=== PATIENT | female | born 1990 | race Caucasian/White ===

== ENCOUNTER 2022-05-09 09:36 | Outpatient (CLI) | payer BC, SELFPAY | END 2022-05-09 09:37 | disposition home or self-care (01) | LOC: ANHLAB 09:43 | PROVIDERS: Visit Provider Advanced Practice Midwife | DX: O20.0 Threatened abortion (principal); Z3A.00 Weeks of gestation of pregnancy not specified | CPT/HCPCS: 36415; 84702; 86850; 86900; 86901 ==

== ENCOUNTER 2022-05-11 12:27 | Outpatient (CLI) | payer BC, SELFPAY | END 2022-05-11 12:28 | disposition home or self-care (01) | LOC: ANHOBOP 12:34 | PROVIDERS: Visit Provider Advanced Practice Midwife | DX: O20.0 Threatened abortion (principal); Z3A.00 Weeks of gestation of pregnancy not specified | CPT/HCPCS: 36415; 84702 ==

== ENCOUNTER 2022-12-01 12:07 | Observation (INO) | payer BC, SELFPAY ==
[2022-12-01 12:21] VITALS: BP 125/74; PULSE 102
[2022-12-01 12:31] VITALS: BP 83/55; PULSE 112
[2022-12-01 12:56] LABS: Appearance Urine Clear (Clear); Bilirubin Urine Negative (Negative); Blood Urine Negative (Negative); Color Urine Yellow (Yellow); Glucose Urine UA Negative (Negative); Ketones Urine Negative (Negative); Leukocyte Esterase Ur 1+ LEU/UL (NEGATIVE); Nitrate Urine Negative (Negative); Protein Urine Negative (Negative); Specific Grav Ur 1.015 (1.001-1.035); Urobilinogen Urine 0.2 mg/dL (<2.0)
[2022-12-01 12:59] LABS: Bacteria Urine 1+ /hpf; Squamous Epithelial Cell Urine Many /hpf (Few)
[2022-12-01 13:00] VITALS: BP 115/71; PULSE 93
[2022-12-01 13:02] LABS: Add Urine Microscopic? YES
--- NOTE | 2022-12-01 13:46 | OBADM ---
This patient, Nohemi Hancock, admitted to the OB room OB Post 117 for observation. Pt states she has been feeling tightness on abdomen and have back pain and suprapubic pain. Patient/family oriented to hospital policies and general routines including ID bracelet, bed and alarms, visiting hours, pain management, procedures, bathroom and other care routines, personal items, smoking policy, room service/diet, and visiting hours. Patient/Family are encouraged to report perceived risks to care and to ask questions if they do not understand what they are told or what they should do.
--- NOTE | 2022-12-25 21:59 | PM.OBTRLD ---
OB - Triage/Final Diagnosis Visit Information Comments/Additional reasons for admission: I have assessed the risk for this patient, Nohemi Hancock, and determined that she would benefit from observation care. Evaluation Laboratory results: Laboratory Tests 12/01/22 12:38 Urine Color Yellow Urine Appearance Clear Urine pH 7.0 Ur Specific [place] 1.015 Urine Protein Negative Urine Glucose (UA) Negative Urine Ketones Negative Ur Blood (Man) Negative Urine Nitrate Negative Urine Bilirubin Negative Urine Urobilinogen 0.2 Ur Leukocyte Esterase 1+ H Urine RBC 3-5 H Urine WBC 4-6 H Ur Squamous Epith Cells Many H Urine Bacteria 1+ H Final Diagnosis (1) False labor: Code(s): O47.9 - False labor, unspecified Status: Acute
== END 2022-12-01 13:30 | disposition home or self-care (01) ==
PROVIDERS: Admitting Provider Obstetrics & Gynecology; Visit Provider Obstetrics & Gynecology
DX: O47.03 False labor before 37 completed weeks of gestation, third trimester (principal); O26.893 Other specified pregnancy related conditions, third trimester; R10.9 Unspecified abdominal pain; Z3A.35 35 weeks gestation of pregnancy
CPT/HCPCS: 81001; 87086; G0378; G0379

== ENCOUNTER 2022-12-25 14:05 | Outpatient (CLI) | payer BC, SELFPAY ==
[2022-12-25 15:05] LABS: Hematocrit 36.6 % (37.0-47.0); Hemoglobin 11.8 g/dL (12.0-15.0); Mean Corpuscular HGB Conc 32.2 g/dl (32-36); Mean Corpuscular Volume 86.7 fl (80-100); Mean Platelet Volume 11.1 fl (7.4-10.4); Platelet Count Result 234 k/mm3 (150-375); Red Blood Count 4.22 M/mm3 (4.2-5.4); Red Cell Distribution Width 15.9 % (11.5-14.5); White Blood Count 10.3 K/mm3 (4.5-10.0)
[2022-12-26 11:29] LABS: Rapid Plasma Reagin Non-Reactive (NonReactive)
== END 2022-12-25 14:06 | disposition home or self-care (01) ==
PROVIDERS: Visit Provider Obstetrics & Gynecology
DX: Z34.93 Encounter for supervision of normal pregnancy, unspecified, third trimester (principal); Z3A.00 Weeks of gestation of pregnancy not specified
CPT/HCPCS: 36415; 85027; 86592; 86850; 86900; 86901

== ENCOUNTER 2022-12-26 05:30 | Inpatient (IN) | payer BC, SELFPAY ==
[2022-12-26] VITALS (47 sets, daily range): BP systolic 67–113; BP diastolic 46–83; PULSE 56–92; RESP 13–16; TEMP 36.2–36.5; O2SAT 96–100; BMI 40.5
[2022-12-26] MEDS: LACTATED RINGERS 1,000 ML 125 ML IV CONT ×2 (05:57→07:06)
--- NOTE | 2022-12-26 06:58 | WPDANESEPPF ---
Anes - Initial Pre Proc Eval Procedure: Operation Date: 12/26/22 07:30 Proposed Procedures p Repeat Section - Kaiden Holman MD Date/Time: 12/26/22 06:58 Surgeon: Kaiden Holman MD Pre Op Diagnosis: r c/s Patient Data Age: 32 Gender: F Height: 1.57 m Weight: 100.5 kg Last Vital Signs Pulse 88 12/26/22 06:15 BP 113/76 12/26/22 06:15 O2 Del Method Room Air 12/26/22 06:37 Allergies Allergy/AdvReac Type Severity Reaction Status Date / Time No Known Allergies Allergy Verified 12/06/22 12:45 Home Medications Medication Instructions Recorded Confirmed Type aspirin 81 mg chewable tablet 81 mg PO DAILY 12/01/22 12/26/22 History levothyroxine 100 mcg tablet 100 mcg DAILY 12/06/22 12/26/22 History prenat.vits,kenney,[id number] 1 tablet PO DAILY 12/06/22 12/26/22 History Patient hx anesthesia problems: none Family hx anesthesia problems: none Results Review: All pre-operative results and documents have been reviewed as part of the pre-operative evaluation. [facility] Family History Family History (Updated 12/06/22 @ 12:51 by Renetta Mckeon RN) Grandparent Heart disease COPD (chronic obstructive pulmonary disease) Mother Heart disease COPD (chronic obstructive pulmonary disease) Grandparent COPD (chronic obstructive pulmonary disease) Breast cancer Social History Social History Smoking status: Never smoker Second hand tobacco smoke exposure: No Substance use: never Lack of Transportation: No Lack of Food: Never True Current Housing: I Have Housing Concerned About Future Housing: No Difficulty Paying Gas/Electric Bills: No Difficulty Paying for Meds: No Currently Unemployed: No Education: Bachelor's Degree Difficulty w/ Childcare or Family Care: No Spiritual care concerns: No Anes - Eval Final PreProcedure Day of Procedure 12/26/22 06:58 Patient weight: morbidly obese Heart: regular rate and rhythm Lungs: clear to auscultation and normal air movement Airway: Mallampati scale class II Neurological: alert and oriented Last oral intake: >/= 8 hours ASA classification: III Emergent: no Anesthetic plan: proceed Anesthesia type and monitoring: regional spinal Results Review: All pre-operative results and documents have been reviewed as part of the pre-operative evaluation. Informed Consent: The patient's anesthetic plan and its attendant risks and benefits were discussed with the patient/family/POA. Questions were solicited and answers provided to the satisfaction of the patient/family/POA.
[2022-12-26] MEDS: ceFAZolin 2 GM/D5W 50 ML 2 GM/50 ML BAG IVPB (07:09)
--- NOTE | 2022-12-26 07:28 | PM.IMHP ---
H&P: HPI History of Present Illness Date/Time: 12/26/22 07:28 Chief Complaint: Term , previous Narrative: a multiparous female at term with a history of delivery presents for repeat delivery. We have agreed to perform repeat . She understands risks. She understands that injuries may occur that result in hospitalization, more surgery, and severe illness. She understands risk of hemorrhage and infection. She denies any chest pain or shortness of breath. She denies any nausea, vomiting, fever, chills. Review of Systems Review of Systems: All systems reviewed & are unremarkable except as noted in HPI and below Constitutional: Constitutional: Denies chills, Denies fatigue, Denies fever(s) and Denies weakness Eyes: Eyes: Denies blurry vision, Denies change in vision, Denies loss of peripheral vision, Denies loss of vision, Denies other visual disturbances and Denies eye pain ENT: Denies vertigo, Denies dizziness, Denies hearing loss, Denies mouth pain, Denies nasal obstruction, Denies neck mass and Denies neck pain Cardiovascular: Cardiovascular: Denies chest pain, Denies diaphoresis, Denies syncope, Denies leg edema and Denies dyspnea Respiratory: Respiratory: Denies chest congestion, Denies cough, Denies hemoptysis, Denies dyspnea and Denies wheezing Gastrointestinal: Gastrointestinal: Denies abdominal pain, Denies constipation, Denies diarrhea, Denies nausea and Denies vomiting Genitourinary: Genitourinary: Denies hematuria, Denies change in libido, Denies nocturia, Denies genital lesions, Denies flank pain and Denies urinary urgency Musculoskeletal: Musculoskeletal: Denies abnormal gait, Denies back pain, Denies myalgias, Denies arthralgias, Denies joint swelling, Denies muscle weakness and Denies neck pain Integumentary/Breasts: Skin/Breast: Denies swelling, Denies breast pain, Denies breast mass, Denies dry skin, Denies nipple discharge, Denies unusual bruising and Denies jaundice Neurologic: Denies Neuro-related abnormal movements, Denies Abnormal speech present, Denies abnormal gait, Denies behavioral changes, Denies confusion, Denies vertigo, Denies dizziness, Denies syncope, Denies loss of vision, Denies memory loss, Denies convulsions and Denies weakness Psychiatric: Psychiatric: Denies abnormal sleep pattern, Denies behavioral changes, Denies change in libido, Denies confusion, Denies depression, Denies anhedonia and Denies memory loss Endocrine: Endocrine: Reports no additional endocrine complaints, Denies change in libido and Denies fatigue Hematologic/Lymphatic: Hematologic/Lymphatic: Reports no additional hematologic/lymphatic complaints Allergic/Immunologic: Allergic/Immunologic: Reports no additional allergic/immunologic complaints and Denies wheezing [facility] Family History Family History (Updated 12/06/22 @ 12:51 by Renetta Mckeon RN) Grandparent Heart disease COPD (chronic obstructive pulmonary disease) Mother Heart disease COPD (chronic obstructive pulmonary disease) Grandparent COPD (chronic obstructive pulmonary disease) Breast cancer Social History Social History Smoking status: Never smoker Second hand tobacco smoke exposure: No Substance use: never Lack of Transportation: No Lack of Food: Never True Current Housing: I Have Housing Concerned About Future Housing: No Difficulty Paying Gas/Electric Bills: No Difficulty Paying for Meds: No Currently Unemployed: No Education: Bachelor's Degree Difficulty w/ Childcare or Family Care: No Spiritual care concerns: No Meds Home Medications and Allergies Home Medications Medication Instructions Recorded Confirmed Type aspirin 81 mg chewable tablet 81 mg PO DAILY 12/01/22 12/26/22 History levothyroxine 100 mcg tablet 100 mcg DAILY 12/06/22 12/26/22 History prenat.vits,kenney,mez-klxf-siwfx 1 tablet PO DAILY 12/06/22 12/26/22 History Allergies Allergy/AdvReac Typ
--- NOTE | 2022-12-26 07:36 | WPDHPUPDATE1 ---
History and Physical Update Update Date/Time: 12/26/22 07:36 History and Physical has been reviewed, including an updated exam of the patient. There are NO changes in the patient's condition. Risks, benefits, and alternatives have been discussed and questions answered. Patient agrees to proceed with procedure.
--- NOTE | 2022-12-26 08:31 | W.PM.PROC2 ---
Procedure Note - Detailed Date of Procedure 12/26/22 Pre-op Diagnosis Previous , term Post-op Diagnosis Same Procedure Performed Low-transverse section Surgeon Kaiden Holman MD Anesthesia Spinal Indications previous , term Findings Normal gestational maternal anatomy, average size , normal Apgars. Description of Procedure The patient was taken the operating room. She was prepped and draped in dorsal supine position with a leftward tilt. This was done after spinal anesthetic was applied. A low-transverse skin incision was made and carried down till of the fascia with the knife. The fascial incision was made with the knife. The fascial incision was extended laterally with Hughes scissors. The fascia was tented upward superiorly and inferiorly the rectus muscles were dissected off bluntly. The rectus muscles were the midline. The preperitoneal fat and peritoneum were dissected open bluntly at the superior aspect of the rectus muscles. The peritoneal incision was extended superior and inferior with good position of bladder. The uterine incision was made with a scalpel down to the level of the amniotic cavity. The amniotic cavity was entered bluntly. The infant was delivered. The cord was clamped and cut and the was handed off to waiting pediatric staff. Cord bloods were obtained. The placenta was removed manually. The uterus was exteriorized. The uterus was cleared of all clots, debris and membranes. The uterus was closed in 0 Vicryl running lock fashion. An imbricating over a was placed along the incision line as well. The uterus was returned to the abdomen. The gutters were cleared of all clots and debris. The fascia was closed with 0 Vicryl running fashion. The subcutaneous tissue was irrigated pinpoint bleeders were cauterized. The skin was closed with subcuticular absorbable andrea. The skin incision line was covered with glue. The patient tolerated the procedure well. She has taken recovery room in stable condition. Sponge lap and needle counts were correct x2. Complications No immediate complications Condition Stable Disposition PACU
[2022-12-26] MEDS: OXYTOCIN 30 UNITS/NS 500 ML 30 UNITS/500 ML BAG 125 UNITS IV CONT (09:04)
--- NOTE | 2022-12-26 11:03 | OBPPTRN ---
Patient transferred to post room #285 via stretcher. Support person present. Oriented to unit, room, information board, rooming in, admission packet and security measures. Patient verbalizes understanding.
[2022-12-26] MEDS: KETOROLAC 30 MG/ML VIAL (*BKC) IV PUSH ×2 (11:33→17:53)
--- NOTE | 2022-12-26 12:02 | PC.NURSE ---
[id number] Introductions were made, then consulted with patient to assess needs related to . Mother led the conversation with her?plans to feed?her infant, the?experience so far and has her latched to the left breast using cross cradle. Mother denies any pain and states she breastfed her first for 14 months until she became . We discussed how to tell if is latched correctly by assessing for pain and what the nipple shape is like after detaching. Reviewed how to detach infant from the breast to protect the nipple so mother could check for misshaping. There was a very slight misshaping. Offer to assist mother with practicing the football position and mother was receptive. Mother works well with her with encouragement and education. Encouraged understanding of the benefits of skin to skin (demonstrating unwrapping infant and placing upright on her chest), stimulating with massage touch, changing positions to encourage wakefulness, how to watch for early feeding cues, responsive feeding, feeding on demand (aiming for 8-12 times in 24 hours, about every 2-3 hours), milk production, building/maintaining a milk supply, duration of feeding, signs of adequate intake/output and how to record on the feeding sheet. Reviewed positioning and ear, shoulder, hip alignment, supporting the breast to facilitate a deep latch, asymmetrical latch (off-center), leading with the chin with a big, open, wide gape and body close to mother. Infant latched optimally to the left breast in football position. Infant was able to maintain latch without discomfort to mother. Nipple care reviewed with optimal latch and good positioning. self detached and nipple was not misshaped. Reviewed good handwashing when or touching the breast/nipples to prevent infection. Resources provided for inpatient/outpatient with business card, feeding sheet and the mom/baby guide. Mother voiced understanding of information and will call if there is a request for assistance. Reported to the primary RN.
[2022-12-26] MEDS: DEXTROSE 5%/0.45% SOD CHL 1,000 ML 125 ML IV CONT (13:12)
[2022-12-26] MEDS: SIMETHICONE 80 MG TAB.CHEW PO ×2 (17:53→22:02)
[2022-12-27] VITALS: BP 118/53; PULSE 78; RESP 16; TEMP 36.7; O2SAT 100
[2022-12-27 05:08] LABS: Basophils Percent Auto 0.4 % (0.2-1.2); Eosinophils Absolute Auto 0.1 K/mm3 (0-0.3); Eosinophils Percent Auto 0.4 % (0-4.4); Hematocrit 35.8 % (37.0-47.0); Hemoglobin 11.2 g/dL (12.0-15.0); Immature Granulocyte Absolute 0.16 K/mm3 (0.00-0.031); Immature Granulocyte Percent A 1.4 % (0-0.5); Lymphocytes Absolute Auto 2.69 K/mm3 (0.9-3.2); Lymphocytes Percent Auto 23.6 % (18.3-44.2); Mean Corpuscular HGB Conc 31.3 g/dl (32-36); Mean Corpuscular Hemoglobin 27.9 pg (26-34); Mean Corpuscular Volume 89.3 fl (80-100); Mean Platelet Volume 11.2 fl (7.4-10.4); Monocytes Absolute Auto 0.9 K/mm3 (0.1-0.6); Monocytes Percent Auto 7.5 % (2.6-8.5); Neutrophils Absolute Auto 7.6 K/mm3 (1.3-6.7); Neutrophils Percent Auto 66.7 % (45.5-73.1); Platelet Count Result 199 k/mm3 (150-375); Red Blood Count 4.01 M/mm3 (4.2-5.4); Red Cell Distribution Width 16.1 % (11.5-14.5); White Blood Count 11.4 K/mm3 (4.5-10.0)
[2022-12-27] MEDS: HYDROcodone/acetaminophen (*CRX) 5-325 MG TABLET 1 TAB PO ×4 (06:00→20:17)
[2022-12-27] MEDS: IBUPROFEN 600 MG TABLET PO ×4 (06:00→20:17)
[2022-12-27] MEDS: ACETAMINOPHEN 325 MG TABLET 650 MG PO (09:01)
[2022-12-27] MEDS: LEVOTHYROXINE SODIUM 100 MCG TABLET PO (09:01)
[2022-12-27 09:03] VITALS: BP 109/64; PULSE 86; RESP 18; TEMP 36.8; O2SAT 97
[2022-12-27] MEDS: MULTIVIT/MIN/PREN/FOL AC/IRON TABLET 1 TAB PO (09:03)
[2022-12-27] MEDS: DOCUSATE SODIUM 100 MG CAPSULE PO ×2 (09:03→16:06)
--- NOTE | 2022-12-27 11:51 | WPDANLDPN2 ---
Anes-Prog Note L&D Date/Time: 12/27/22 11:51 Comfortable throughout: section Neuraxial method: spinal Epidural/Spinal procedure site: clean & non-tender Neuro status: Neuro function grossly intact. Cardiovascular status: normal Respiratory status: normal Airway patency: baseline Mental status: baseline Post-Op hydration status: normal Vital Signs: Last Vital Signs Temp 36.8 C 12/27/22 09:03 Pulse 86 12/27/22 09:03 Resp 18 12/27/22 09:03 BP 109/64 12/27/22 09:03 Pulse Ox 97 12/27/22 09:03 O2 Del Method Room Air 12/27/22 09:03 Pain score (VAS): 10/28 I/O: Intake & Output 12/26/22 12/27/22 12/27/22 23:59 07:59 15:59 Output Total 400 350 Balance -400 -350 Post-procedural complaints: pruritis mild, no treatment Patient feedback: Patient satisfied with anesthetic care.
[2022-12-27] MEDS: SIMETHICONE 80 MG TAB.CHEW PO (12:18)
[2022-12-27 20:15] VITALS: BP 120/74; PULSE 82; RESP 16; TEMP 36.8; O2SAT 100
[2022-12-28] MEDS: HYDROcodone/acetaminophen (*CRX) 5-325 MG TABLET 1 TAB PO ×3 (01:35→13:50)
--- NOTE | 2022-12-28 04:24 | PC.NURSE ---
Daylight Savings Time For Daylight Savings Time Ending in the Fall - Clocks are moved back. For Daylight Savings Time Beginning in the Spring - Clocks are moved ahead. For [facility], the time of change occurs at 0200 hrs. Time is taken from the service observer. This entry on the patient's chart recognizes the change in time reflected during documentation. Example: 2 entries for vital signs may be charted for 0200 hrs.
--- NOTE | 2022-12-28 08:00 | PC.NURSE ---
PT introductions made and plan of care discussed per post op c section, pain management, breast feeding, daily care activities and pending discharge to home. PT and spouse both recipients of such instructions and no barriers to learning identified at this time. PT received instructions per one to one discussion, mom baby care guide and demonstrations this shift. PT verbalized understanding of such care.
[2022-12-28] MEDS: DOCUSATE SODIUM 100 MG CAPSULE PO (08:21)
[2022-12-28] MEDS: MULTIVIT/MIN/PREN/FOL AC/IRON TABLET 1 TAB PO (08:21)
[2022-12-28] MEDS: IBUPROFEN 600 MG TABLET PO ×2 (08:21→13:51)
[2022-12-28] MEDS: SIMETHICONE 80 MG TAB.CHEW PO (08:21)
[2022-12-28] MEDS: LEVOTHYROXINE SODIUM 100 MCG TABLET PO (08:22)
[2022-12-28 08:27] VITALS: BP 120/65; PULSE 71; RESP 18; TEMP 36.8; O2SAT 100
[2022-12-28 08:30] VITALS: PULSE 71; RESP 18; O2SAT 100
--- NOTE | 2022-12-28 10:25 | P.PNOB_ITS ---
OB - PN: Subj Subjective Date/time seen: 12/28/22 10:25 Patient comments: no complaints and pain well controlled baby status: doing well and nursing well [place] feeding status: exclusively breast feeding Narrative: would like DC home today OB - PN: Obj Data Labs 12/27/22 04:26 OB - PN A/P Plan day: 2 Plan: routine care and discharge home Comments: consented for circumcision. Time Spent With Patient Time: Total time spent is greater than 50% in coordination of care (as documented) at patient's floor/unit and/or counseling patient: Exam Narrative: NAD abdomen soft, appropriately tender, incision CDI Extremities nontender with 1+ edema
--- NOTE | 2022-12-28 10:29 | PM.OBDSVD ---
DS: Admitting Diagnosis Discharge Date 12/28/22 Admitting Diagnosis repeat CS DS: Discharge Diagnosis Discharge Diagnosis (1) delivery delivered: Code(s): O82 - Encounter for delivery without indication Status: Acute OB - DS: Summary Hospital Course Hospital Course: Nohemi was admitted for repeat cesearean section. Her delivery and course were uncomplicated and she was discharged home in stable condition on POD2. OB Procedures : Ultrasound OB Procedures Intrapartum: OB Procedures: : None Peripartum Data Infant Delivery Method: Section Procedures: Procedures Operation Date: 12/26/22 07:30 Actual Procedure Side Surgeon p Repeat Section Not Applicable Kaiden Holman MD complications: none Status at Discharge Functional status at discharge: independent ambulation Time Spent with Patient Time attestation: Total time spent providing and/or coordinating discharge services: Exam Narrative: NAD abdomen soft, appropriately tender, incision CDI Discharge Plan Discharge Attending physician on discharge: Анна Graves Discharging Clinician: Анна Graves Anticipated Discharge Date/Time: 12/28/22 10:26 Patient Disposition: Home, Self-Care Activity: may shower, may drive after 2 weeks and pelvic rest Diet: regular Discharge Instructions: Education: Mom and Baby Guide Given to: Mother Follow-Up: Call your delivering provider's office for an appointment to be seen in: 1 Week Mom and baby should come to the [facility] for the follow-up appointment. Appointment Date/Time: December 31, 2022 at 10:00 am What to expect at your follow-up visit: Blood Pressure Check Call [phone] if you are unable to keep your appointment time. BREAST CARE: * Wear a snug supportive bra. * For engorgement discomfort: Breast Feeding: * Apply warm moist washcloths * Express milk as needed to relieve engorgement * Wear loose clothing * For sore nipples: * Identify correct latch-on * Apply warm moist washcloths before and after nursing * Air dry nipples after nursing * May apply Lansinoh cream to nipples ABDOMINAL INCISION: (if applicable) * Allow incision to air dry * Do NOT use lotions for powders on your incision * When showering, allow soap and water to run over the incision, but do not wash incision PERINEAL CARE: * Until bleeding stops, use your khushboo bottle after urinating * Change your pad frequently throughout the day * No tub baths until seen by your physician - You may shower ACTIVITY: * Rest as much as possible. * Do not exercise or lift anything heavier than your baby (such as laundry or other children.) * Avoid stairs or driving as much as possible. * Do not put anything into the vagina. No douching, tampons, or sexual activity until seen by physician. NOTIFY PHYSICIAN IF YOU HAVE ANY QUESTIONS OR IF ANY OF THE FOLLOWING SYMPTOMS OCCUR: * If your incision becomes red, swollen, or more painful than what you have experienced in the hospital. * If your vaginal bleeding becomes foul smelling. * If your vaginal bleeding becomes more heavy than a period or if your bleeding changes from pink to bright red. However, you may pass an occasional walnut-sized clot once or twice for the first week . * If you experience a sharp, shooting pain in you calves. * If you discover a hard, reddened area on your breast or if you experience flu-like symptoms. * If you have a fever of 100.4 or greater DIET: * Eat regular, well-balanced meals. * Drink plenty of fluids daily. If , drink to thirst. Patient Instructions: Antibiotic Form Stand Alone Forms: General Discharge Information Follow-up/Referrals: Kaiden Holman MD [Physician] - 1 Week Discharge Medications: New oxycodone
--- NOTE | 2022-12-28 16:05 | PC.NURSE ---
1100 Patient viewed the discharge video Mother & Baby Care, The First Two Weeks . Patient was given the opportunity and encouraged to ask questions. Patient verbalized understanding of information shared and has been given the mother/baby guide for home reference.
[2022-12-31 10:15] VITALS: BP 124/78; PULSE 90; RESP 18; TEMP 36.8; O2SAT 99
== END 2022-12-28 15:10 | disposition home or self-care (01) | DRG 788 ==
LOC: ANHLDR 05:33 → ANHOB2 11:31
PROVIDERS: Admitting Provider Obstetrics & Gynecology; Visit Provider Obstetrics & Gynecology
PROC: 10D00Z1 Extraction of Products of Conception, Low, Open Approach (ICD-10-PCS; CPT 59514; principal; 2022-12-26 07:30)
DX: O34.219 Maternal care for unspecified type scar from previous cesarean delivery (principal); O99.824 Streptococcus B carrier state complicating childbirth; Z3A.39 39 weeks gestation of pregnancy; Z37.0 Single live birth; Z79.82 Long term (current) use of aspirin
CPT/HCPCS: 36415; 85025; A9270; J0131; J0690; J1100; J1885; J2274; J2370; J2405; J2590; J7120

== ENCOUNTER 2023-01-06 13:27 | Outpatient (RCR) | payer BC, SELFPAY ==
--- NOTE | 2023-01-06 15:37 | PC.NURSE ---
In- 1327 Out- 1521 Reason for visit: Mother is concerned with latching infant and supplementing breastmilk with bottles History: mother delivered on 12/26/22 as a repeat section. Medications: levothyroxine . Hx: anxiety, depression, PPD and breastfed her first infant for 14 months. History: Infant was delivered by section on 12/26/22. APGARS 8/8. Deleed 12-14mls after . There is a tight lingual frenulum. breastfed well exclusively in the hospital. Observations: Mother brings her to the breast while infant is crying with an open mouth. Mother was encouraged to calm infant with upright skin to skin and when was calm, then attempt to place to the breast. Once 's diapers were changed and was calm and opened mouth wide with tongue down was able to maintain latch and breastfeed effectively. It did take a while to calm infant to get past the hangry and settle well at the breast. The first few attempts infant would suck for a few minutes and cry. Mother states she typically would stop and give the a bottle. Encouraged mother to hand express some milk to encourage latching and maintaining. weight: 3500g (7-11.5) Lowest weight: 12/27/22 3268g (7-3.3) Last weight: Follow up appt 3415g (7-8.5) Pre-feed weight: 3502 (7-11.5) Post-feed weight: 3564g (7-13.7) Plan of Care: Mother was encouraged to watch for the early feeding cues demonstrated with baby and not the clock. Mother is concerned about her toddler and feels like she needs to be tending to him. Mother was given ideas of how to spend time with the toddler while practicing and how to include him. Mother was encouraged to practice to get better at . To practice good alignment, positioning and to flipple the breast effectively into the 's mouth and actively keep the infant with stimulation. Mother has copious milk. Mother was instructed to watch for blanching at the tip of the nipple after latch, to detach infant from the breast if there is pain, misshaping of the nipple and to pump and feed her if there is an unsuccessful latch. Mother has a good history and was encouragement to wait patiently for the big, wide open gape before latching with the tongue down. Infant did demonstrate effectively opening mouth, latching, swallowing and maintained with no pain to mother or misshaped nipples. Mother was encouraged to watch the for feeding signs and to feed frequently. Discussed mother's mental health disposition and mother states she is doing well and when to call if she should begin to have difficulties. Mother topped off infant before driving home. Reviewed prevention of engorgement and protecting the milk supply. Mother voiced understanding of the education. Follow up plans: Mother voiced understanding of when to call the ICP, to wake up to breastfeed if it has been 2-3 hours since the start of the last , services for additional assistance or needs.
== END 2023-04-06 23:59 | disposition home or self-care (01) ==
LOC: ANHOBOP 13:27
PROVIDERS: Visit Provider Pediatrics
DX: Z39.1 Encounter for care and examination of lactating mother (principal)
CPT/HCPCS: 99213; G0463

== ENCOUNTER 2024-06-09 14:23 | Observation (INO) | payer BC, SELFPAY ==
[2024-06-09 14:41] VITALS: BP 125/64; PULSE 100
[2024-06-09 15:00] VITALS: BP 121/58; PULSE 99
--- NOTE | 2024-06-09 15:02 | OBADM ---
This patient, Nohemi Hancock, admitted to the OB room OB Post 117 for observation. Patient/family oriented to hospital policies and general routines including ID bracelet, bed and alarms, visiting hours, pain management, procedures, bathroom and other care routines, personal items, smoking policy, room service/diet, and visiting hours. Patient/Family are encouraged to report perceived risks to care and to ask questions if they do not understand what they are told or what they should do.
[2024-06-09 15:30] VITALS: BP 128/62; PULSE 96
--- NOTE | 2024-07-06 19:58 | PM.OBTRLD ---
OB - Triage/Final Diagnosis Visit Information Comments/Additional reasons for admission: I have assessed the risk for this patient, Nohemi Hancock, and determined that she would benefit from observation care. Final Diagnosis (1) Trauma during : Code(s): O9A.219 - Injury, poisoning and certain other consequences of external causes complicating , unspecified trimester Status: Acute
== END 2024-06-09 16:55 | disposition home or self-care (01) ==
PROVIDERS: Admitting Provider Obstetrics & Gynecology; Visit Provider Obstetrics & Gynecology
DX: O99.891 Other specified diseases and conditions complicating pregnancy (principal); T14.90XA Injury, unspecified, initial encounter; W19.XXXA Unspecified fall, initial encounter
CPT/HCPCS: G0378; G0379

== ENCOUNTER 2024-07-27 14:37 | Observation (INO) | payer BC, SELFPAY ==
[2024-07-27] VITALS (44 sets, daily range): BP systolic 115–132; BP diastolic 59–72; PULSE 106–123; TEMP 37.3–37.6; O2SAT 98–100; BMI 44.9
--- NOTE | 2024-07-27 15:08 | LDADM ---
This patient, Nohemi Hancock, was admitted to OB Post 116 on 07/27/24 at 14:37. Plans for labor, pain management and were discussed with patient. Patient/family oriented to hospital policies and general routines including ID bracelet, bed and alarms, visiting hours, pain management, procedures, bathroom and other care routines, personal items, smoking policy, room service/diet and guest tray routines, infant security routines, and visiting hours. Patient/Family are encouraged to report perceived risks to care and to ask questions if they do not understand what they are told or what they should do. See OBIX for further documentation.
[2024-07-27] MEDS: LACTATED RINGERS 1,000 ML 999 ML IV CONT ×2 (15:25→16:38)
[2024-07-27] MEDS: ONDANSETRON INJ 4 MG/2 ML VIAL IV PUSH (15:26)
[2024-07-27 15:34] LABS: Basophils Percent Auto 0.2 % (0.2-1.2); Hematocrit 35.3 % (37.0-47.0); Hemoglobin 11.5 g/dL (12.0-15.0); Immature Granulocyte Absolute 0.26 K/mm3 (0.00-0.031); Immature Granulocyte Percent A 2.5 % (0-0.5); Lymphocytes Absolute Auto 0.87 K/mm3 (0.9-3.2); Lymphocytes Percent Auto 8.4 % (18.3-44.2); Mean Corpuscular HGB Conc 32.6 g/dl (32-36); Mean Corpuscular Hemoglobin 28.1 pg (26-34); Mean Corpuscular Volume 86.3 fl (80-100); Mean Platelet Volume 10.9 fl (7.4-10.4); Monocytes Absolute Auto 0.7 K/mm3 (0.1-0.6); Monocytes Percent Auto 6.7 % (2.6-8.5); Neutrophils Absolute Auto 8.5 K/mm3 (1.3-6.7); Neutrophils Percent Auto 82.2 % (45.5-73.1); Platelet Count Result 217 k/mm3 (150-375); Red Blood Count 4.09 M/mm3 (4.2-5.4); Red Cell Distribution Width 15.4 % (11.5-14.5); White Blood Count 10.3 K/mm3 (4.5-10.0)
[2024-07-27 15:45] LABS: Add Urine Microscopic? YES; Appearance Urine Cloudy (Clear); Bacteria Urine 2+ /hpf; Bilirubin Urine 1+ (Negative); Blood Urine Negative (Negative); Color Urine Dark Yellow (Yellow); Glucose Urine UA Negative (Negative); Ketones Urine 4+ mg/dL (Negative); Leukocyte Esterase Ur 1+ LEU/UL (Negative); Need Manual Microscopic Reviewed; Nitrate Urine Negative (Negative); Protein Urine 1+ mg/dL (Negative); RBC Urine 0-2 /hpf (0-2); Specific Grav Ur 1.024 (1.001-1.035); Squamous Epithelial Cell Urine Moderate /hpf (Few)
[2024-07-27 15:47] LABS: Alanine Aminotransferase 11 U/L (6-35); Albumin Level 3.5 g/dL (3.5-5.1); Alkaline Phosphatase 108 U/L (38-126); Anion Gap 6 mmol/L (4-12); Aspartate Amino Transferase 29 U/L (14-36); Bilirubin,Total 0.5 mg/dL (0.2-1.3); Blood Urea Nitrogen 5 mg/dL (7-17); Calcium 8.3 mg/dL (8.4-10.2); Carbon Dioxide 20 mmol/L (22-30); Chloride 106 mmol/L (98-107); Estimated CRCL calculation 186 ml/min; Estimated Glomerular Filt Rate > 60; Glucose 94 mg/dL (65-110); Potassium 3.2 mmol/L (3.4-5.0); Sodium 132 mmol/L (137-145)
--- NOTE | 2024-08-16 18:13 | P.PNOB_ITS ---
OB - Triage/Final Diagnosis Visit Information Comments/Additional reasons for admission: I have assessed the risk for this patient, Nohemi Hancock, and determined that she would benefit from observation care. Evaluation Laboratory results: Laboratory Tests 07/27/24 14:55 WBC 10.3 H RBC 4.09 L Hgb 11.5 L Hct 35.3 L MCV 86.3 MCH 28.1 MCHC 32.6 RDW 15.4 H Plt Count 217 MPV 10.9 H Immature Gran % (Auto) 2.5 H Neut % (Auto) 82.2 H Lymph % (Auto) 8.4 L [place] % (Auto) 6.7 Eos % (Auto) 0.0 Baso % (Auto) 0.2 Lymph # (Auto) 0.87 L [place] # (Auto) 0.7 H Eos # (Auto) 0.0 Baso # (Auto) 0.0 Abs Immat Gran (auto) 0.26 H Absolute Neuts (auto) 8.5 H Absolute Nucleated RBC 0.000 Nucleated RBC % 0.0 Sodium 132 L Potassium 3.2 L Chloride 106 Carbon Dioxide 20 L Anion Gap 6 BUN 5 L Creatinine 0.40 L Estim Creat Clear Calc 186 Estimated GFR > 60 Glucose 94 Calcium 8.3 L Total Bilirubin 0.5 AST 29 ALT 11 Alkaline Phosphatase 108 Total Protein 7.0 Albumin 3.5 Urine Color Dark yellow Urine Appearance Cloudy H Urine pH 6.0 Ur Specific [place] 1.024 Urine Protein 1+ H Urine Glucose (UA) Negative Urine Ketones 4+ H Ur Blood (Man) Negative Urine Nitrate Negative Urine Bilirubin 1+ H Urine Urobilinogen 2.0 H Add Ur Microanalysis Reviewed Leukocyte Esterase Rfl 1+ H Urine RBC 0-2 Urine WBC 11-20 H Ur Squamous Epith Cells Moderate Urine Bacteria 2+ H Urine Casts 3-5 Final Diagnosis (1) Nausea and vomiting: Code(s): R11.2 - Nausea with vomiting, unspecified Status: Acute
== END 2024-07-27 18:14 | disposition home or self-care (01) ==
PROVIDERS: Admitting Provider Obstetrics & Gynecology; Visit Provider Obstetrics & Gynecology
DX: O21.2 Late vomiting of pregnancy (principal); Z3A.32 32 weeks gestation of pregnancy
CPT/HCPCS: 36415; 80053; 81001; 85025; 87086; 96361; 96374; 96375; G0378; G0379; J0696; J2405; J7120

== ENCOUNTER 2024-08-13 13:50 | Outpatient (CLI) | payer BC, SELFPAY ==
[2024-08-13 15:15] VITALS: BP 126/71; PULSE 125
[2024-08-13 15:33] LABS: OBXCEM ROM Plus Negative (Negative)
== END 2024-08-13 15:40 | disposition home or self-care (01) ==
PROVIDERS: Obstetrics & Gynecology; Visit Provider Obstetrics & Gynecology
DX: O41.8X90 Other specified disorders of amniotic fluid and membranes, unspecified trimester, not applicable or unspecified (principal)
CPT/HCPCS: 59025; 84112

== ENCOUNTER 2024-08-25 17:31 | Observation (INO) | payer BC, SELFPAY ==
--- NOTE | ~2024-08-25 | US_ITS ---
EXAMINATION: US OB BPP wo non-stress DATE: 08/25/2024 20:50 LOTTERIES AGENT INDICATION: Decelerations. 4 para 2 Estimated date of delivery by last menstrual period is 09/18/2024. Gestational age is 36 weeks and 4 days. TECHNIQUE: Real-time transabdominal obstetric ultrasound was performed. FINDINGS: There is a single intrauterine gestation in a longitudinal lie and in vertex presentation. The place nta is anterior without placenta previa. cardiac activity and movement is noted with a heart rate of 140 beats per minute. Biophysical profile: breathin of 2 movement: 2 of 2 tone: 2 of 2 Deepest vertical amniotic fluid pocket: 2 of 2, measuring 4.8 cm (normal ranges from 2 to 8 cm) Total score: 8 of 8 IMPRESSION: 1. Single intrauterine gestation in vertex presentation with cardiac activity identified. 2: Total biophysical profile score of 8 out of 8. Reviewed, dictated and finalized at location A. ERIES AGENT IMPRESSION: 1. Single intrauterine gestation in vertex presentation with cardiac activity i dentified. 2: Total biophysical profile score of 8 out of 8.
[2024-08-25 17:56] VITALS: BMI 43.1
--- NOTE | 2024-08-25 17:57 | LDADM ---
This patient, Nohemi Hancock, was admitted to OB Post 113 on 08/25/24 at 17:31. Plans for labor, pain management and were discussed with patient. Patient/family oriented to hospital policies and general routines including ID bracelet, bed and alarms, visiting hours, pain management, procedures, bathroom and other care routines, personal items, smoking policy, room service/diet and guest tray routines, infant security routines, and visiting hours. Patient/Family are encouraged to report perceived risks to care and to ask questions if they do not understand what they are told or what they should do. See OBIX for further documentation.
--- NOTE | 2024-08-25 19:10 | PC.NURSE ---
Updated Dr. Holman on pt and reviewed tracing, orders received to get a BPP.
--- NOTE | 2024-08-25 19:55 | PC.NURSE ---
Called Dr. Holman, update on BPP 05/26, orders received to discharge pt with instructions to keep next scheduled appointment and when to return to the unit.
--- NOTE | 2024-08-25 20:13 | PC.NURSE ---
Pt discharged with instructions to keep next scheduled appointment and when to return to the unit, pt verbalizes understanding.
--- NOTE | 2024-09-18 19:59 | PM.OBTRLD ---
OB - Triage/Final Diagnosis Visit Information Comments/Additional reasons for admission: I have assessed the risk for this patient, Nohemi Hancock, and determined that she would benefit from observation care. Final Diagnosis (1) Nausea and vomiting: Code(s): R11.2 - Nausea with vomiting, unspecified Status: Acute
== END 2024-08-25 20:13 | disposition home or self-care (01) ==
PROVIDERS: Admitting Provider Obstetrics & Gynecology; Visit Provider Obstetrics & Gynecology
DX: O21.2 Late vomiting of pregnancy (principal); Z3A.36 36 weeks gestation of pregnancy
CPT/HCPCS: 76819; G0378; G0379

== ENCOUNTER 2024-08-27 17:08 | Outpatient (CLI) | payer BC, SELFPAY ==
[2024-08-27] VITALS (12 sets, daily range): BP systolic 122–142; BP diastolic 68–79; PULSE 96–122; TEMP 36.8
--- NOTE | ~2024-08-27 | US_ITS ---
EXAMINATION: US OB limited w BPP DATE: 08/27/2024 21:00 INDICATION: tachycardia during third trimester TECHNIQUE: Real-time pelvic ultrasound was performed. The interpreting radiologist was not present fo r the study. COMPARISON: None. FINDINGS: There is a single living fetus in vertex presentation. The placenta is anterior. heart rate is 135 beats per minute (bpm). Amniotic fluid volume is subjectively normal with normal deepest vertica l pocket measurement of 3.2 cm. Biophysical profile performed by the technologist: breathing (30 sec sustained breathing in 30 minutes): 2 out of 2 movement (3 gross body movements in 30 minutes): 2 out of 2 tone (one episode of chgzbwr-qizejtgdq-cjekxrl limb movement): 2 out of 2 Amniotic fluid pocket (2 cm): 2 out of 2 Total score: 8 out of 8 IMPRESSION: 1. Single living fetus in vertex presentation with heart rate of 135 bpm. 2. Biophysical profile 8 out of 8. Reviewed, dictated and finalized at location B. NTO WEB DEVELOPER
[2024-08-27 17:47] LABS: Basophils Percent Auto 0.2 % (0.2-1.2); Eosinophils Percent Auto 0.2 % (0-4.4); Hematocrit 33.5 % (37.0-47.0); Immature Granulocyte Absolute 0.27 K/mm3 (0.00-0.031); Immature Granulocyte Percent A 1.9 % (0-0.5); Lymphocytes Absolute Auto 2.12 K/mm3 (0.9-3.2); Lymphocytes Percent Auto 15.2 % (18.3-44.2); Mean Corpuscular HGB Conc 32.8 g/dl (32-36); Mean Corpuscular Hemoglobin 27.2 pg (26-34); Mean Corpuscular Volume 82.9 fl (80-100); Mean Platelet Volume 11.2 fl (7.4-10.4); Monocytes Absolute Auto 1.3 K/mm3 (0.1-0.6); Monocytes Percent Auto 9.3 % (2.6-8.5); Neutrophils Absolute Auto 10.2 K/mm3 (1.3-6.7); Neutrophils Percent Auto 73.2 % (45.5-73.1); Platelet Count Result 254 k/mm3 (150-375); Red Blood Count 4.04 M/mm3 (4.2-5.4); Red Cell Distribution Width 15.3 % (11.5-14.5)
[2024-08-27 17:51] LABS: Add Urine Microscopic? YES; Appearance Urine Cloudy (Clear); Bacteria Urine 1+ /hpf; Bilirubin Urine Negative (Negative); Blood Urine Non-Hemolyzed Trace (Negative); Color Urine Yellow (Yellow); Glucose Urine UA Negative (Negative); Ketones Urine Negative (Negative); Leukocyte Esterase Ur Trace LEU/UL (Negative); Nitrate Urine Negative (Negative); Non Pathogenic Casts 0-2; Protein Urine Trace mg/dL (Negative); Specific Grav Ur 1.015 (1.001-1.035); Squamous Epithelial Cell Urine Moderate /hpf (Few)
[2024-08-27 17:54] LABS: Creatinine Urine 76.7 mg/dL; Total Protein Urine Random 19 mg/dL; Ur Ttl Prot Creatinine Ratio 0.25 mg/mg (0-0.20)
[2024-08-27 18:04] LABS: Alanine Aminotransferase 12 U/L (6-35); Albumin Level 3.3 g/dL (3.5-5.1); Alkaline Phosphatase 140 U/L (38-126); Anion Gap 6 mmol/L (4-12); Aspartate Amino Transferase 21 U/L (14-36); Bilirubin,Total 0.3 mg/dL (0.2-1.3); Blood Urea Nitrogen 8 mg/dL (7-17); Calcium 8.5 mg/dL (8.4-10.2); Carbon Dioxide 21 mmol/L (22-30); Chloride 107 mmol/L (98-107); Estimated Glomerular Filt Rate > 60; Glucose 95 mg/dL (65-110); Potassium 3.7 mmol/L (3.4-5.0); Sodium 134 mmol/L (137-145); Uric Acid 2.8 mg/dL (2.5-7.5)
== END 2024-08-27 21:30 | disposition home or self-care (01) ==
LOC: ANHOBOP 17:14 → ANHOBPP 17:37
PROVIDERS: Visit Provider Obstetrics & Gynecology
DX: O13.9 Gestational [pregnancy-induced] hypertension without significant proteinuria, unspecified trimester (principal); Z3A.00 Weeks of gestation of pregnancy not specified
CPT/HCPCS: 36415; 76815; 76819; 80053; 81001; 82570; 84156; 84550; 85025; 87086; 99199

== ENCOUNTER 2024-09-04 11:21 | Observation (INO) | payer BC, SELFPAY ==
[2024-09-04 11:45] VITALS: BP 125/75; PULSE 108
[2024-09-04 12:13] LABS: Add Urine Microscopic? YES; Appearance Urine Clear (Clear); Bacteria Urine None Seen /hpf; Bilirubin Urine Negative (Negative); Blood Urine Negative (Negative); Color Urine Yellow (Yellow); Glucose Urine UA Negative (Negative); Ketones Urine Negative (Negative); Leukocyte Esterase Ur Negative LEU/UL (Negative); Nitrate Urine Negative (Negative); Non Pathogenic Casts 0-2; Protein Urine Trace mg/dL (Negative); RBC Urine 0-2 /hpf (0-2); Specific Grav Ur 1.017 (1.001-1.035); Squamous Epithelial Cell Urine Moderate /hpf (Few); Urobilinogen Urine 0.2 mg/dL (<2.0); WBC Urine 0-5 /hpf (0-3)
[2024-09-04 12:32] VITALS: BMI 43.1
--- NOTE | 2024-09-04 12:32 | OBADM ---
This patient, Nohemi Hancock, admitted to the OB room Labor/Delivery/Recovery 120 for observation. Patient/family oriented to hospital policies and general routines including ID bracelet, bed and alarms, visiting hours, pain management, procedures, bathroom and other care routines, personal items, smoking policy, room service/diet, and visiting hours. Patient/Family are encouraged to report perceived risks to care and to ask questions if they do not understand what they are told or what they should do.
--- NOTE | 2024-09-04 12:47 | PC.NURSE ---
Dr. Holman updated on NST, urine results and SVE (closed) . Okay to discharge.
--- NOTE | 2024-09-27 08:28 | PM.OBTRLD ---
OB - Triage/Final Diagnosis Visit Information Comments/Additional reasons for admission: I have assessed the risk for this patient, Nohemi Hancock, and determined that she would benefit from observation care. Evaluation Laboratory results: Laboratory Tests 09/04/24 12:05 Urine Color Yellow Urine Appearance Clear Urine pH 7.0 Ur Specific [place] 1.017 Urine Protein Trace Urine Glucose (UA) Negative Urine Ketones Negative Ur Blood (Man) Negative Urine Nitrate Negative Urine Bilirubin Negative Urine Urobilinogen 0.2 Leukocyte Esterase Rfl Negative Urine RBC 0-2 Urine WBC 0-5 Ur Squamous Epith Cells Moderate Urine Bacteria None seen Urine Casts 0-2 Final Diagnosis (1) Back pain affecting : Code(s): O99.891 - Other specified diseases and conditions complicating ; M54.9 - Dorsalgia, unspecified Status: Acute
== END 2024-09-04 12:48 | disposition home or self-care (01) ==
PROVIDERS: Admitting Provider Obstetrics & Gynecology; Visit Provider Obstetrics & Gynecology
DX: O99.891 Other specified diseases and conditions complicating pregnancy (principal); M54.9 Dorsalgia, unspecified; Z3A.38 38 weeks gestation of pregnancy
CPT/HCPCS: 81001; G0378; G0379

== ENCOUNTER 2024-09-09 10:23 | Inpatient (IN) | payer BC, SELFPAY ==
[2024-09-09] VITALS (38 sets, daily range): BP systolic 105–140; BP diastolic 50–113; PULSE 72–110; RESP 15–21; TEMP 36.3–36.5; O2SAT 82–100; BMI 43.7
[2024-09-09 14:07] LABS: Hematocrit 35.7 % (37.0-47.0); Hemoglobin 11.1 g/dL (12.0-15.0); Mean Corpuscular HGB Conc 31.1 g/dl (32-36); Mean Corpuscular Hemoglobin 26.4 pg (26-34); Mean Corpuscular Volume 84.8 fl (80-100); Platelet Count Result 225 k/mm3 (150-375); Red Blood Count 4.21 M/mm3 (4.2-5.4); Red Cell Distribution Width 15.7 % (11.5-14.5); White Blood Count 11.2 K/mm3 (4.5-10.0)
--- NOTE | 2024-09-09 14:11 | ADMGEN ---
This patient, Nohemi Hancock, was admitted to OB Post 117-00. Patient/family oriented to hospital policies and general routines including ID bracelet, bed and alarms, visiting hours, pain management, procedures, bathroom and other care routines, personal items, smoking policy, room service/diet, and visiting hours. Information on how to activate the Rapid Response Team has been discussed. Patient/Family are encouraged to report perceived risks to care and to ask questions if they do not understand what they are told or what they should do.
[2024-09-09 14:27] LABS: Alanine Aminotransferase 11 U/L (6-35); Albumin Level 3.5 g/dL (3.5-5.1); Alkaline Phosphatase 164 U/L (38-126); Anion Gap 4 mmol/L (4-12); Aspartate Amino Transferase 21 U/L (14-36); Bilirubin,Total 0.3 mg/dL (0.2-1.3); Blood Urea Nitrogen 7 mg/dL (7-17); Calcium 8.5 mg/dL (8.4-10.2); Carbon Dioxide 23 mmol/L (22-30); Chloride 107 mmol/L (98-107); Estimated Glomerular Filt Rate > 60; Glucose 75 mg/dL (65-110); Potassium 3.9 mmol/L (3.4-5.0); Sodium 134 mmol/L (137-145)
[2024-09-09] MEDS: LACTATED RINGERS 1,000 ML 125 ML IV CONT (14:43)
[2024-09-09 14:56] LABS: Rapid Plasma Reagin Non-Reactive (NonReactive)
[2024-09-09 15:07] LABS: HIV 1/2 Ab P24 Ag Result Negative (Negative)
[2024-09-09] MEDS: ACETAMINOPHEN 500 MG TABLET 1000 MG PO (15:41)
--- NOTE | 2024-09-09 16:15 | P.HP_ITS ---
H&P: HPI History of Present Illness Date/Time: 09/09/24 16:15 Chief Complaint: Term Narrative: 34-year-old multiparous female at 38 weeks gestation who presents for repeat delivery and female sterilization. She has undesired fertility. She also has an a fetus with intermittent severe tachycardia. For this reason we are proceeding with today versus 3 days from The patient understands the details of the procedure. The procedure has been explained in detail. She understands the risks. She understands that injuries may occur that result in hospitalization, more surgery, and severe illness. She understands risk of hemorrhage and infection. She denies any chest pain or shortness of breath. She denies any nausea, vomiting, fever, chills. Review of Systems Review of Systems: All systems reviewed & are unremarkable except as noted in HPI and below Constitutional: Constitutional: Denies chills, Denies fatigue, Denies fever(s) and Denies weakness Eyes: Eyes: Denies blurry vision, Denies change in vision, Denies loss of peripheral vision, Denies loss of vision, Denies other visual disturbances and Denies eye pain ENT: Denies vertigo, Denies dizziness, Denies hearing loss, Denies mouth pain, Denies nasal obstruction, Denies neck mass and Denies neck pain Cardiovascular: Cardiovascular: Denies chest pain, Denies diaphoresis, Denies syncope, Denies leg edema and Denies dyspnea Respiratory: Respiratory: Denies chest congestion, Denies cough, Denies hemoptysis, Denies dyspnea and Denies wheezing Gastrointestinal: Gastrointestinal: Denies abdominal pain, Denies constipation, Denies diarrhea, Denies nausea and Denies vomiting Genitourinary: Genitourinary: Denies hematuria, Denies change in libido, Denies nocturia, Denies genital lesions, Denies flank pain and Denies urinary urgency Musculoskeletal: Musculoskeletal: Denies abnormal gait, Denies back pain, Denies myalgias, Denies arthralgias, Denies joint swelling, Denies muscle weakness and Denies neck pain Integumentary/Breasts: Skin/Breast: Denies swelling, Denies breast pain, Denies breast mass, Denies dry skin, Denies nipple discharge, Denies unusual bruising and Denies jaundice Neurologic: Denies Neuro-related abnormal movements, Denies Abnormal speech present, Denies abnormal gait, Denies behavioral changes, Denies confusion, Denies vertigo, Denies dizziness, Denies syncope, Denies loss of vision, Denies memory loss, Denies convulsions and Denies weakness Psychiatric: Psychiatric: Denies abnormal sleep pattern, Denies behavioral changes, Denies change in libido, Denies confusion, Denies depression, Denies anhedonia and Denies memory loss Endocrine: Endocrine: Reports no additional endocrine complaints, Denies change in libido and Denies fatigue Hematologic/Lymphatic: Hematologic/Lymphatic: Reports no additional hematologic/lymphatic complaints Allergic/Immunologic: Allergic/Immunologic: Reports no additional allergic/immunologic complaints and Denies wheezing [facility] Family History Family History (Updated 09/05/24 @ 15:07 by Cherri Nina RN) Grandparent Heart disease COPD (chronic obstructive pulmonary disease) Mother Heart disease COPD (chronic obstructive pulmonary disease) Grandparent Breast cancer COPD (chronic obstructive pulmonary disease) Father Heart disease Heart attack Sibling History of renal stent Social History Social History Smoking status: Never smoker Second hand tobacco smoke exposure: No Substance use: never Do You Feel Safe in your Home?: Yes Lack of Transportation: No Lack of Food: Never True Current Housing: I Have Housing Concerned About Future Housing: No Difficulty Paying Gas/Electric Bills: No Difficulty Paying for Meds: No Currently Unemployed: No Education: Bachelor's Degree Difficulty w/ Childcare or Family Care: No Spiritual care concerns: No Meds Home Medications and Allergies Home Medications Medication Instructions Recorded Confirmed Type levothyroxine 100 mcg tablet 100 mcg DAILY 12/06/22 09/09/24 History prenat.vits,[place],tuc-ljgk-gmeey 1 tablet PO DAILY 12/06/22 09/09/24 History docusate sodium 100 mg capsule 100 mg PO BID PRN Constipation #60 12/28/22 09/09/24 Rx caps fluoxetine 20 mg capsule 20 mg PO DAILY 08/25/24 09/09/24 History Allergies Allergy/AdvReac Type Severity Reaction Status Date / Time No Known Allergies Allergy Verified 09/09/24 14:12 Vital Signs Vital Signs - 24 hr 09/09/24 12:58 09/09/24 13:00 09/09/24 13:01 Temperature Pulse Rate 94 89 Respiratory Rate Blood Pressure 140/113 H 131/80 126/78 Oxygen Delivery 09/09/24 14:01 09/09/24 15:01 09/09/24 15:41 Temperature 97.7 F Pulse Rate 94 99 Respiratory Rate 16 Blood Pressure 139/95 H 140/74 Oxygen Delivery 09/09/24 14:17 09/09/24 15:41 Temperature 97.7 F Pulse Rate 94 Respiratory Rate 18 Blood Pressure Oxygen Delivery Room Air Exam Const: General: cooperative, healthy appearing, comfortable and no acute dist ress Orientation/consciousness: oriented to person, oriented to place and oriented to time HENMT: Head: normal to inspection Ears: external ears normal Face/Nose/Sinus: Normal external nose present and normal facial exam Face and sinus: normal facial exam Eyes: General: appearance normal, both eyes and all related structures Neck: Neck: normal visual inspection, trachea midline and supple Resp: Auscultation: clear to auscultation bilaterally, no crackles, no rales, no rhonchi and no wheezes Cardio: Rate: regular rate Rhythm: regular rhythm Heart sounds: no click , no murmurs and no rubs GI: GI Palp: No abdominal tenderness, No Soft to palpation, No Tenderness to palpation present (GI) and No Palpable mass present Auscultation: normal bowel sounds Skin: General skin exam: normal color and no rashes or lesions noted Neuro: General: oriented to person, oriented to place and oriented to time Extrem: General: normal to inspection, no joint enlargement, no clubbing, cyanosis or edema, no pedal edema and no calf tenderness Psych: Appearance: grossly normal Mental Status: mental status grossly normal Speech and movement: Normal speech and movement present H&P: Results Labs Labs: Short CBC 09/09/24 Range/Units 14:02 WBC 11.2 H (4.5-10.0) K/mm3 Hgb 11.1 L (12.0-15.0) g/dL Hct 35.7 L (37.0-47.0) % Plt Count 225 (150-375) k/mm3 BMP 09/09/24 13:53 Sodium 134 L Potassium 3.9 Chloride 107 Carbon Dioxide 23 BUN 7 Creatinine 0.50 L Glucose 75 Calcium 8.5 Liver Function 09/09/24 Range/Units 13:53 Total Bilirubin 0.3 (0.2-1.3) mg/dL AST 21 (14-36) U/L ALT 11 (6-35) U/L Alkaline Phosphatase 164 H (38-126) U/L Albumin 3.5 (3.5-5.1) g/dL Assessment and Plan Assessment and plan (1) tachycardia: Status: Acute (2) Unwanted fertility: Code(s): Z30.09 - Encounter for other general counseling and advice on contraception Status: Acute (3) delivery delivered: Code(s): O82 - Encounter for delivery without indication Status: Acute Plan 34-year-old multiparous female with previous deliveries and tachycardia presents for repeat with salpingectomy. She is on wanted fertility. Intermittent tachycardia that is severe, at times greater than 200 beat per minute. She understands risks, benefits, and alternatives. She has completed informed consent process and is ready to proceed.
--- NOTE | 2024-09-09 16:19 | WPDHPUPDATE1 ---
History and Physical Update Update Date/Time: 09/09/24 16:19 History and Physical has been reviewed, including an updated exam of the patient. There are NO changes in the patient's condition. Risks, benefits, and alternatives have been discussed and questions answered. Patient agrees to proceed with procedure.
--- NOTE | 2024-09-09 16:22 | P.PNAN_ITS ---
Anes - Initial Pre Proc Eval Procedure: Operation Date: 09/12/24 12:00 Proposed Procedures p Repeat Section - Ronnie Holman MD Date/Time: 09/09/24 16:22 Surgeon: Ronnie Holman MD Pre Op Diagnosis: C/Section/Elevated Heart Rate Patient Data Age: 34 Gender: F Height: 1.55 m Weight: 105 kg Last Vital Signs Temp 97.7 F 09/09/24 15:41 Pulse 99 09/09/24 15:01 Resp 16 09/09/24 15:41 BP 140/74 09/09/24 15:01 O2 Del Method Room Air 09/09/24 14:17 Allergies Allergy/AdvReac Type Severity Reaction Status Date / Time No Known Allergies Allergy Verified 09/09/24 14:12 Home Medications Medication Instructions Recorded Confirmed Type levothyroxine 100 mcg tablet 100 mcg DAILY 12/06/22 09/09/24 History prenat.vits,[place],czq-yegp-sudtb 1 tablet PO DAILY 12/06/22 09/09/24 History docusate sodium 100 mg capsule 100 mg PO BID PRN Constipation #60 12/28/22 09/09/24 Rx caps fluoxetine 20 mg capsule 20 mg PO DAILY 08/25/24 09/09/24 History Laboratory Tests 09/09/24 09/09/24 13:53 14:02 WBC 11.2 H K/mm3 (4.5-10.0) RBC 4.21 M/mm3 (4.2-5.4) Hgb 11.1 L g/dL (12.0-15.0) Hct 35.7 L % (37.0-47.0) MCV 84.8 fl (80-100) MCH 26.4 pg (26-34) MCHC 31.1 L g/dl (32-36) RDW 15.7 H % (11.5-14.5) Plt Count 225 k/mm3 (150-375) MPV 11.0 H fl (7.4-10.4) Sodium 134 L mmol/L (137-145) Potassium 3.9 mmol/L (3.4-5.0) Chloride 107 mmol/L (98-107) Carbon Dioxide 23 mmol/L (22-30) Anion Gap 4 mmol/L (4-12) BUN 7 mg/dL (7-17) Creatinine 0.50 L mg/dL (0.7-1.0) Estim Creat Clear Calc Not Reportable Estimated GFR > 60 (59 - ) Glucose 75 mg/dL (65-110) Calcium 8.5 mg/dL (8.4-10.2) Total Bilirubin 0.3 mg/dL (0.2-1.3) AST 21 U/L (14-36) ALT 11 U/L (6-35) Alkaline Phosphatase 164 H U/L (38-126) Total Protein 7.0 g/dL (6.3-8.2) Albumin 3.5 g/dL (3.5-5.1) RPR Non-reactive (NonReactive) HIV 1&2 Ab/P24 Ag 4thGn Negative (Negative) Blood Type O Positive Antibody Screen Negative Patient hx anesthesia problems: none Family hx anesthesia problems: none Results Review: All pre-operative results and documents have been reviewed as part of the pre- operative evaluation. FORMERLY [facility], [facility] Family History Family History Grandparent Heart disease COPD (chronic obstructive pulmonary disease) Mother Heart disease COPD (chronic obstructive pulmonary disease) Grandparent Breast cancer COPD (chronic obstructive pulmonary disease) Father Heart disease Heart attack Sibling History of renal stent Social History Social History Smoking status: Never smoker Second hand tobacco smoke exposure: No Substance use: never Do You Feel Safe in your Home?: Yes Lack of Transportation: No Lack of Food: Never True Current Housing: I Have Housing Concerned About Future Housing: No Difficulty Paying Gas/Electric Bills: No Difficulty Paying for Meds: No Currently Unemployed: No Education: Bachelor's Degree Difficulty w/ Childcare or Family Care: No Spiritual care concerns: No Anes - Eval Final PreProcedure Day of Procedure 09/09/24 16:22 Patient weight: morbidly obese Heart: regular rate and rhythm Lungs: clear to auscultation Airway: Mallampati scale class II Neurological: alert and oriented Last oral intake: >/= 8 hours ASA classification: III Emergent: no Anesthetic plan: proceed Anesthesia type and monitoring: regional spinal and standard monitoring Results Review: All pre-operative results and documents have been reviewed as part of the pre- operative evaluation. Hx of hashimotos, now on synthroid and clinically euthyroid. Plts nml 228. Informed Consent: The patient's anesthetic plan and its attendant risks and benefits were discussed with the patient/family/POA. Questions were solicited and answers provided to the satisfaction of the patient/family/POA.
[2024-09-09] MEDS: FAMOTIDINE 20 MG/2 ML VIAL IV PUSH (16:24)
[2024-09-09] MEDS: ONDANSETRON INJ 4 MG/2 ML VIAL IV PUSH (16:24)
[2024-09-09] MEDS: ceFAZolin 2 GM/D5W 50 ML 2 GM/50 ML BAG IVPB (16:33)
--- NOTE | 2024-09-09 18:03 | P.PCNOB_ITS ---
OB - Delivery Note Procedure Delivery date: 09/09/24 Pre-op diagnosis: Previous Delivery and Other ( Tachycardia) Post-op Diagnosis: Same Procedure Performed: Repeat and Tubal Ligation Surgeon: Ronnie Holman MD Anesthesia type: Epidural Description of Procedure/Findings: The patient was taken the operating room.? She was prepped and draped in dorsal supine position with a leftward tilt.? This was done after spinal anesthetic was applied.? A low-transverse skin incision was made and carried down till of the fascia with the knife.? The fascial incision was made with the knife.? The fascial incision was extended laterally with Hughes scissors.? The fascia was tented upward superiorly and inferiorly the rectus muscles were dissected off bluntly.? The rectus muscles were the midline.? The preperitoneal fat and peritoneum were dissected open bluntly at the superior aspect of the rectus muscles.? The peritoneal incision was extended superior and inferior with good position of bladder.? The uterine incision was made with a scalpel down to the level of the amniotic cavity.? The amniotic cavity was entered bluntly.? The infant was delivered.? The cord was clamped and cut and the was handed off to waiting pediatric staff.? Cord bloods were obtained.? The placenta was removed manually.? The uterus was exteriorized.? The uterus was cleared of all clots, debris and membranes.? The uterus was closed in 0 Vicryl running lock fashion.? imbricating layer of 0 Vicryl was placed also. Each fallopian tube was grasped and raised with a [place].? With from the underlying venous structures.? The mesosalpinx between the tube and the rest the adnexa was cauterized and transected with LigaSure cautery.? It was performed from the distal tube near the ovary in a stepwise fashion towards the cornua.? The tube at the cornua was cauterized transected with LigaSure cau maurilio.? This was performed in a bilateral fashion. The uterus was returned to the abdomen.? The gutters were cleared of all clots and debris.? The fascia was closed with 0 Vicryl running fashion.? The subcutaneous tissue was irrigated pinpoint bleeders were cauterized.? The skin was closed with subcuticular absorbable andrea.? The skin incision line was covered with glue.? The patient tolerated the procedure well.? She has taken recovery room in stable condition.? Sponge lap and needle counts were correct x2.?
[2024-09-09] MEDS: diphenhydrAMINE HCl INJ 50 MG/ML VIAL 25 MG IV PUSH (18:34)
--- NOTE | 2024-09-09 20:05 | OBPPTRN ---
Patient transferred to post room #288 via stretcher. Support person present. Oriented to unit, room, information board, rooming in, admission packet and security measures. Patient verbalizes understanding.
[2024-09-09] MEDS: DEXTROSE 5%/0.45% SOD CHL 1,000 ML 125 ML IV CONT (21:00)
[2024-09-09] MEDS: ACETAMINOPHEN 325 MG TABLET 650 MG PO (23:30)
[2024-09-09] MEDS: KETOROLAC 15 MG/ML VIAL (*BKC) IV PUSH (23:30)
[2024-09-10 04:37] LABS: Basophils Percent Auto 0.4 % (0.2-1.2); Eosinophils Percent Auto 0.4 % (0-4.4); Hematocrit 31.3 % (37.0-47.0); Hemoglobin 9.9 g/dL (12.0-15.0); Immature Granulocyte Absolute 0.12 K/mm3 (0.00-0.031); Immature Granulocyte Percent A 1.1 % (0-0.5); Lymphocytes Absolute Auto 2.24 K/mm3 (0.9-3.2); Lymphocytes Percent Auto 20.3 % (18.3-44.2); Mean Corpuscular HGB Conc 31.6 g/dl (32-36); Mean Corpuscular Hemoglobin 26.2 pg (26-34); Mean Corpuscular Volume 82.8 fl (80-100); Mean Platelet Volume 11.3 fl (7.4-10.4); Monocytes Absolute Auto 0.9 K/mm3 (0.1-0.6); Monocytes Percent Auto 8.2 % (2.6-8.5); Neutrophils Absolute Auto 7.7 K/mm3 (1.3-6.7); Neutrophils Percent Auto 69.6 % (45.5-73.1); Platelet Count Result 205 k/mm3 (150-375); Red Blood Count 3.78 M/mm3 (4.2-5.4); Red Cell Distribution Width 15.6 % (11.5-14.5)
[2024-09-10] MEDS: KETOROLAC 15 MG/ML VIAL (*BKC) IV PUSH ×3 (05:00→16:59)
[2024-09-10] MEDS: ACETAMINOPHEN 325 MG TABLET 650 MG PO ×5 (05:00→23:00)
--- NOTE | 2024-09-10 06:51 | WPDANLDPN2 ---
Anes-Prog Note L&D Date/Time: 09/10/24 06:51 Comfortable throughout: section Neuraxial method: spinal Epidural/Spinal procedure site: clean & non-tender Neuro status: Neuro function grossly intact. Cardiovascular status: normal Respiratory status: normal Airway patency: baseline Mental status: baseline Post-Op hydration status: normal Vital Signs: Last Vital Signs Temp 97.6 F 09/09/24 23:30 Pulse 82 09/09/24 23:30 Resp 18 09/09/24 23:30 BP 123/69 09/09/24 23:30 Pulse Ox 98 09/09/24 23:30 O2 Del Method Room Air 09/10/24 04:30 Pain score (VAS): 4 I/O: Intake & Output 09/09/24 09/09/24 09/10/24 15:59 23:59 07:59 Intake Total 1500 Output Total 615 500 Balance -615 1000 Post-procedural complaints: pruritis mild, no treatment Patient feedback: Patient satisfied with anesthetic care.
--- NOTE | 2024-09-10 06:51 | WPDANLDNPN2 ---
Anes-Prog Note L&D-Neuraxial Date/Time: 09/10/24 06:51 Neuraxial medications: intrathecal PF morphine Opiod-related complaints: pruritis mild, no treatment Patient feedback: Patient satisfied with post-operative pain management.
[2024-09-10] MEDS: LEVOTHYROXINE SODIUM 100 MCG TABLET BY MOUTH (06:54)
[2024-09-10] MEDS: POLYSACCHARIDE IRON COMPLEX 150 MG CAPSULE PO ×3 (08:49→17:01)
[2024-09-10] MEDS: DOCUSATE SODIUM 100 MG CAPSULE PO ×2 (08:49→17:01)
[2024-09-10] MEDS: MULTIVIT/MIN/PREN/FOL AC/IRON TABLET 1 TAB PO (08:49)
[2024-09-10] MEDS: SIMETHICONE 80 MG TAB.CHEW PO ×3 (08:49→17:01)
[2024-09-10] MEDS: FLUoxetine HCL 20 MG CAPSULE PO (08:49)
--- NOTE | 2024-09-10 08:52 | PM.OBPNVD ---
OB - PN: Subj Subjective Date/time seen: 09/10/24 08:52 Interval history: post op day 1 breast feeding doing well flatus present OB - PN: Obj Data Labs 09/10/24 04:05 09/09/24 13:53 Labs: Laboratory Results - last 24 hr 09/09/24 09/09/24 09/10/24 13:53 14:02 04:05 WBC 11.2 H 11.0 H RBC 4.21 3.78 L Hgb 11.1 L 9.9 L Hct 35.7 L 31.3 L MCV 84.8 82.8 MCH 26.4 26.2 MCHC 31.1 L 31.6 L RDW 15.7 H 15.6 H Plt Count 225 205 MPV 11.0 H 11.3 H Immature Gran % (Auto) 1.1 H Neut % (Auto) 69.6 Lymph % (Auto) 20.3 [place] % (Auto) 8.2 Eos % (Auto) 0.4 Baso % (Auto) 0.4 Lymph # (Auto) 2.24 [place] # (Auto) 0.9 H Eos # (Auto) 0.0 Baso # (Auto) 0.0 Abs Immat Gran (auto) 0.12 H Absolute Neuts (auto) 7.7 H Absolute Nucleated RBC 0.000 Nucleated RBC % 0.0 Sodium 134 L Potassium 3.9 Chloride 107 Carbon Dioxide 23 Anion Gap 4 BUN 7 Creatinine 0.50 L Estim Creat Clear Calc Not Reportable Estimated GFR > 60 Glucose 75 Calcium 8.5 Total Bilirubin 0.3 AST 21 ALT 11 Alkaline Phosphatase 164 H Total Protein 7.0 Albumin 3.5 RPR Non-reactive HIV 1&2 Ab/P24 Ag 4thGn Negative Blood Type O Positive Antibody Screen Negative OB - PN A/P Plan day: 1 Plan: routine care Time Spent With Patient Time: Total time spent is greater than 50% in coordination of care (as documented) at patient's floor/unit and/or counseling patient: Review of Systems Review of Systems: All systems reviewed & are unremarkable except as noted in HPI and below Exam Const: General: cooperative, healthy appearing and comfortable Resp: Effort & Inspection: normal respiratory effort Cardio: Rate: regular rate Skin: General skin exam: normal color
[2024-09-10 09:00] VITALS: BP 137/90; PULSE 84; RESP 16; TEMP 37.6; O2SAT 99
--- NOTE | 2024-09-10 11:00 | PC.NURSE ---
Mother verbalizes she is able to independently latch with appropriate positioning and alignment. She denies any nipple discomfort and is responsively . Infant is currently meeting outcomes for weight, output, jaundice, blood sugar and feeding frequencies of 8-12 times in 24 hours. Mother declines any additional assistance or education at this time. Mother is encouraged to call for assistance if her infant doesn?t latch, pain with latching, questions or concerns. Mother voiced understanding of information shared along with the mom/baby guide for an additional resource. Reported to the Primary RN.
[2024-09-10 16:30] VITALS: BP 137/89; PULSE 96; RESP 16; TEMP 36.5; O2SAT 97
[2024-09-10 19:50] VITALS: BP 145/88; PULSE 98; RESP 18; TEMP 36.5; O2SAT 98
[2024-09-10] MEDS: IBUPROFEN 600 MG TABLET PO (23:00)
[2024-09-11] MEDS: IBUPROFEN 600 MG TABLET PO ×2 (05:00→12:34)
[2024-09-11] MEDS: ACETAMINOPHEN 325 MG TABLET 650 MG PO ×2 (05:00→12:34)
[2024-09-11] MEDS: LEVOTHYROXINE SODIUM 100 MCG TABLET BY MOUTH (07:38)
[2024-09-11 07:50] VITALS: BP 135/84; PULSE 80; RESP 16; TEMP 36.6; O2SAT 100; O2SAT 98
[2024-09-11] MEDS: FLUoxetine HCL 20 MG CAPSULE PO (09:04)
[2024-09-11] MEDS: POLYSACCHARIDE IRON COMPLEX 150 MG CAPSULE PO (09:04)
[2024-09-11] MEDS: SIMETHICONE 80 MG TAB.CHEW PO (09:04)
[2024-09-11] MEDS: MULTIVIT/MIN/PREN/FOL AC/IRON TABLET 1 TAB PO (09:05)
[2024-09-11] MEDS: DOCUSATE SODIUM 100 MG CAPSULE PO (09:05)
--- NOTE | 2024-09-11 09:49 | PM.OBPNVD ---
OB - PN: Subj Subjective Date/time seen: 09/11/24 09:49 Interval history: post op day 2 breast feeding doing well flatus present desires d/c home OB - PN: Obj Data Labs 09/10/24 04:05 09/09/24 13:53 OB - PN A/P Plan day: 2 Plan: routine care and discharge home Time Spent With Patient Time: Total time spent is greater than 50% in coordination of care (as documented) at patient's floor/unit and/or counseling patient: Review of Systems Review of Systems: All systems reviewed & are unremarkable except as noted in HPI and below Exam Const: General: cooperative, healthy appearing and comfortable Chest: Chest palpation & inspection: normal inspection of the chest Resp: Effort & Inspection: normal respiratory effort Cardio: Rate: regular rate
--- NOTE | 2024-09-11 10:00 | PM.OBDSVD ---
DS: Admitting Diagnosis Discharge Date 09/11/24 Admitting Diagnosis section DS: Discharge Diagnosis Discharge Diagnosis (1) Delivery by section: Status: Acute OB - DS: Summary OB Procedures : None OB Procedures Intrapartum: Spontaneous Vag Delivery OB Procedures: : None Peripartum Data Procedures: Procedures Operation Date: 09/09/24 16:30 Actual Procedure Side Surgeon p Section Bilateral Ronnie Holman MD Operation Date: 09/12/24 12:00 <No data on this case meets the specified criteria> Time Spent with Patient Time attestation: Total time spent providing and/or coordinating discharge services: DS: Data Data Completed and Pending Pending studies at discharge: Pending at discharge 09/09/24 18:20 Surgical [PTH] Routine Discharge Plan Discharge Attending physician on discharge: Ronnie Holman Discharging Clinician: Joselin Del Real Patient Disposition: Home, Self-Care Activity: pelvic rest Diet: regular Patient Instructions: Antibiotic Form Stand Alone Forms: General Discharge Information Follow-up/Referrals: Ronnie Holman MD [Physician] - 1 Week Discharge Medications: New hydrocodone-acetaminophen 5-325 mg Tablet 1 tablet PO Q3H PRN (Reason: Breakthrough Pain Rated 4-6) 105 Days Qty: 30 0RF Continued levothyroxine 100 mcg tablet 100 mcg DAILY prenat.vits,kenney,wir-fcvz-ehlmy Tablet 1 tablet PO DAILY docusate sodium 100 mg Capsule 100 mg PO BID PRN (Reason: Constipation) Qty: 60 0RF fluoxetine 20 mg capsule 20 mg PO DAILY Date of admission: 09/09/24 10:23 Primary Care Provider: UNKNOWN,DOCTOR Admitting Provider: Ronnie Holman Attending physician on admission: Ronnie Holman Condition: Stable
[2024-09-13 10:58] VITALS: BP 135/90; PULSE 76; RESP 18; TEMP 37.1; O2SAT 100
== END 2024-09-11 13:30 | disposition home or self-care (01) | DRG 785 ==
LOC: ANHOBPP 17:05 → ANHLDR 17:11 → ANHOB2 20:06
PROVIDERS: Admitting Provider Obstetrics & Gynecology; Visit Provider Obstetrics & Gynecology
PROC: 10D00Z1 Extraction of Products of Conception, Low, Open Approach (ICD-10-PCS; CPT 59514; principal; 2024-09-09 16:30)
DX: O34.219 Maternal care for unspecified type scar from previous cesarean delivery (principal); Z30.2 Encounter for sterilization; O76 Abnormality in fetal heart rate and rhythm complicating labor and delivery; O69.81X0 Labor and delivery complicated by cord around neck, without compression, not applicable or unspecified; Z3A.38 38 weeks gestation of pregnancy; Z37.0 Single live birth
CPT/HCPCS: 36415; 80053; 85025; 85027; 86592; 86703; 86850; 86900; 86901; 88302; A9270; G0432; J0690; J1200; J1885; J2274; J2371; J2405; J2590; J7120